=== PATIENT | male | born 1985 | race Caucasian/White ===

== ENCOUNTER 2016-09-16 17:07 | Emergency (ER) | payer OTHER ==
[~2016-09-16] VITALS: Ht 172.7 cm; Wt 68.0 kg
[2016-09-16] MEDS ORDERED: CYCL-331 PO (18:44)
[2016-09-16] MEDS ORDERED: NAPR500T3 PO (18:44)
[2016-09-16 19:00] VITALS: BP 145/62
--- NOTE | 2016-09-16 20:13 | ED.ADGEN ---
Past History Past Medical History: No Pertinent History Past Surgical History: No Surgical History Alcohol Use: Occasionally Drug Use: None Adult General HPI HPI Patient is a 31-year-old man, with no significant past medical history, who presents to the emergency department with a complaint of right shoulder pain. 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 He states he has no pain at rest, however when he attempts to adduct abduct or extend his arm he does have pain with motion. Denies similar symptoms previously, states he has history of a remote clavicle injury in the same side but no shoulder problems. No neck pain or back pain, no chest pain or difficulty breathing, no rashes, no other injuries. He did take naproxen approximately 2 hours prior to arrival in the ED, shortly after the injury occurred. Review of Systems Review of Systems Constitutional: Denies fever or chills [] Eyes: Denies change in visual acuity, redness, or eye pain [] HENT: Denies nasal congestion or sore throat [] Respiratory: Denies cough or shortness of breath [] Cardiovascular: No additional information not addressed in HPI [] GI: Denies abdominal pain, nausea, vomiting, bloody stools or diarrhea [] : Denies dysuria or hematuria [] Musculoskeletal: Denies back pain, pain in the right shoulder. Integument: Denies rash or skin lesions [] Neurologic: Denies headache, focal weakness or sensory changes [] Endocrine: Denies polyuria or polydipsia [] Allergies Allergies Allergies Coded Allergies Type Severity Reaction Last Updated Verified No Known Drug Allergies 09/16/16 No Physical Exam Physical Exam Constitutional: Well developed, well nourished, no acute distress, non-toxic appearance. [] HENT: Normocephalic, atraumatic, bilateral external ears normal, oropharynx moist, no oral exudates, nose normal. [] Eyes: PERRLA, EOMI, conjunctiva normal, no discharge. [] Neck: Normal range of motion, no tenderness, supple, no stridor. [] Cardiovascular:Heart rate regular rhythm, no murmur , S1, S2, rubs or gallops. [ ] Lungs & Thorax: Bilateral breath sounds clear to auscultation, no wheezing, rhonchi, rales. No chest or crepitus or tenderness. [] Abdomen: Bowel sounds normal, soft, no tenderness, no rebound, rigidity, no guarding, no masses, no pulsatile masses. [] Skin: Warm, dry, no erythema, no rash. [] Back: No tenderness, no CVA tenderness. [] Extremities: Patient had reproducible tenderness to palpation over the acromioclavicular joint, no squaring of the shoulder, no tenderness palpation of the shoulder or the glenoid fossa, no other areas of tenderness or discomfort , equal shoulder height on examination, scapular examination is normal as well no cyanosis, no clubbing, ROM intact, no edema. [] Neurologic: Alert and oriented X 3, normal motor function, normal sensory function, no focal deficits noted. [] Psychologic: Affect normal, judgement normal, mood normal. [] Current Patient Data Vital Signs Vital Signs Date Time Temp Pulse Resp B/P (MAP) Pulse Ox O2 Delivery O2 Flow Rate FiO2 09/16/16 19:00 98.5 84 20 145/62 (89) 99 EKG EKG [] Radiology/Procedures Radiology/Procedures Right shoulder x-ray: Three-view: No bony or soft tissue normalities identified , no fracture or dislocation. As interpreted by me. [] Course & Med Decision Making Course & Med Decision Making Pertinent Labs and Imaging studies reviewed. (See chart for details) [] Final Impression Final Impression Patient's examination reveals tenderness at the before meals joint. No significant widening or other maladies identified on x-ray. Inform the patient' s that he would be contacted by radiology if there over read require additional follow-up. Examination is consistent with an acromioclavicular strain joint strain, did offer the patient uses a sliding. He did attempt to follow-up with Worker's Compensation earlier today but the office was closed and his employer prompted him to come to the ED. Instructed patient to be on light duty until he is cleared for return to work by Worker's Compensation, was also given contact information for Dr. Ignacio of orthopedics to establish follow-up if directed to do so by Worker's Compensation physician. Patient was given prescription for naproxen and cyclobenzaprine to be used as directed with medication precautions and instructions given, patient to contact printer [employer]'s Compensation tomorrow morning, to return to the ED if any new or concerning symptoms develop. Patient discharged home in stable condition with significant other with plan as above. Problems: Dragon Disclaimer Dragon Disclaimer This electronic medical record was generated, in whole or in part, using a voice recognition dictation system. Departure: Impression: Primary Impression: Strain of AC joint Disposition: HOME, SELF-CARE Condition: IMPROVED Scripts Cyclobenzaprine Hcl (CYCLOBENZAPRINE HCL) 10 Mg Tablet 10 MG PO TID Y for PAIN, #12 TAB Prov: YOANA QUEVEDO DO 09/16/16 Naproxen (NAPROXEN) 500 Mg Tablet 500 MG PO BID Y for PAIN, #10 TAB Prov: YOANA QUEVEDO DO 09/16/16 YOANA QUEVEDO DO September 16, 2016 20:12
--- NOTE | 2016-09-17 08:38 | RAD ---
Indication: Right shoulder pain. Technique: 3 views of the right shoulder are submitted for review. No comparison is available. Findings: There is no fracture or dislocation. There is no osseous lesion. Impression: Negative for fracture.
== END 2016-09-16 19:00 | disposition home or self-care (01) ==
LOC: ER 17:07
DX: S46.811A Strain of other muscles, fascia and tendons at shoulder and upper arm level, right arm, initial encounter (principal); X50.9XXA Other and unspecified overexertion or strenuous movements or postures, initial encounter; Y93.89 Activity, other specified; Y99.8 Other external cause status; Y92.89 Other specified places as the place of occurrence of the external cause
CPT/HCPCS: 73030; 99284

== ENCOUNTER 2016-12-06 22:23 | Emergency (ER) | payer OTHER ==
[~2016-12-06] VITALS: Ht 172.7 cm; Wt 68.0 kg
[~2016-12-06 22:23] MED LIST: CYCL-331 PO; NAPR500T3 PO
[2016-12-06 23:05] VITALS: BP 160/93
--- NOTE | 2016-12-06 23:12 | ED.ADGEN ---
Past History Past Medical History: No Pertinent History Past Surgical History: No Surgical History Alcohol Use: Occasionally Drug Use: None Adult General Chief Complaint Chief Complaint sore throat since monday. HPI HPI Patient is a 31 y/o male that has had a sore throat since monday. he started solumedrol yesterday and has had 2 doses. he had a neg strep he states by his doctor. he is still having pain. no n/v/d. no fever. no sick contacts. Review of Systems Review of Systems Constitutional: Denies fever or chills [] Eyes: Denies change in visual acuity, redness, or eye pain [] HENT: Denies nasal congestion or sore throat [] Respiratory: Denies cough or shortness of breath [] Cardiovascular: No additional information not addressed in HPI [] GI: Denies abdominal pain, nausea, vomiting, bloody stools or diarrhea [] : Denies dysuria or hematuria [] Musculoskeletal: Denies back pain or joint pain [] Integument: Denies rash or skin lesions [] Neurologic: Denies headache, focal weakness or sensory changes [] Endocrine: Denies polyuria or polydipsia [] Current Medications Current Medications Current Medications Medications (Trade) Dose Ordered Sig/Naveen Start Time Stop Time Status Last Admin Dose Admin Acetaminophen/ Hydrocodone Bitart (Lortab 7.5/325) 1 tab 1X ONCE 12/06/16 23:45 12/06/16 23:45 DC 12/06/16 23:31 1 TAB Amoxicillin (Amoxil) 500 mg 1X ONCE 12/06/16 23:45 12/06/16 23:45 DC 12/06/16 23:31 500 MG Allergies Allergies Allergies Coded Allergies Type Severity Reaction Last Updated Verified No Known Drug Allergies 09/16/16 No Physical Exam Physical Exam Constitutional: Well developed, well nourished, no acute distress, non-toxic appearance. [] HENT: Normocephalic, atraumatic, bilateral external ears normal, oropharynx moist, no oral exudates, nose normal, no tonsillar swelling. no peritonsillar swelling, no exudates. minimal erythema Eyes: PERRLA, EOMI, conjunctiva normal, no discharge. [] Neck: Normal range of motion, no tenderness, supple, no stridor. + lymphadenopathy R>L Cardiovascular:Heart rate regular tachy rhythm, no murmur [] Lungs & Thorax: Bilateral breath sounds clear to auscultation [] Abdomen: Bowel sounds normal, soft, no tenderness, no masses, no pulsatile masses. [] Skin: Warm, dry, no erythema, no rash. [] Back: No tenderness, no CVA tenderness. [] Extremities: No tenderness, no cyanosis, no clubbing, ROM intact, no edema. [] Neurologic: Alert and oriented X 3, normal motor function, normal sensory function, no focal deficits noted. [] Psychologic: Affect normal, judgement normal, mood normal. [] Current Patient Data Vital Signs Vital Signs Date Time Temp Pulse Resp B/P (MAP) Pulse Ox O2 Delivery O2 Flow Rate FiO2 12/06/16 23:31 20 99 Room Air 12/06/16 23:05 100.0 95 EKG EKG [] Radiology/Procedures Radiology/Procedures [] Course & Med Decision Making Course & Med Decision Making Pertinent Labs and Imaging studies reviewed. (See chart for details) will add amoxil and lortab elixir. pt is a healthy adult with no immunocompromise, afebrile, to suggest risk for retropharyngeal abscess at this point. he will need to return if worse for further investigation [] Final Impression Final Impression pharyngitis lymphadenopathy[] Problems: Dragon Disclaimer Dragon Disclaimer This electronic medical record was generated, in whole or in part, using a voice recognition dictation system. Departure Time of Disposition: 23:13 Disposition: 01 HOME, SELF-CARE Condition: STABLE Patient Instructions: Viral and Bacterial Pharyngitis, [id number] Additional Instructions: start amoxil. continue solumedrol. start lortab elixir. keep liquids foods. return if increased pain, swelling, fever, or other concerns Prescriptions amoxil and lortab elixir BETY LANDRUM MD Dec 06, 2016 23:12
[2016-12-06] MEDS ORDERED: AMOX875T PO (23:16)
[2016-12-06] MEDS ORDERED: HYDR15SO4 PO (23:16)
[2016-12-06] MEDS ORDERED: AMOXICILLIN 500 MG CAPSULE PO ONE (23:45)
[2016-12-06] MEDS ORDERED: HYDROcodone/APAP 7.5/325MG 1 TAB TABLET PO ONE (23:45)
== END 2016-12-06 23:34 | disposition home or self-care (01) ==
LOC: ER 22:23
DX: J02.9 Acute pharyngitis, unspecified (principal); R59.1 Generalized enlarged lymph nodes
CPT/HCPCS: 99283

== ENCOUNTER 2017-05-06 07:39 | Emergency (ER) | payer OTHER ==
[~2017-05-06] VITALS: Ht 172.7 cm; Wt 68.0 kg
[~2017-05-06 07:39] MED LIST changes: +AMOX875T PO; +HYDR15SO4 PO; -NAPR500T3 PO; +NAPR500T4 PO
[2017-05-06 07:52] VITALS: BP 171/101
[2017-05-06] MEDS ORDERED: OXYMETAZOLINE 0.05% NASAL SPRAY 15ML BOTTLE. NS ONE (08:15)
--- NOTE | 2017-05-06 08:15 | PHYS DOC ---
Past History Past Medical History: No Pertinent History Past Surgical History: No Surgical History Smoking: Cigarettes Alcohol Use: Occasionally Drug Use: None Adult General Chief Complaint Chief Complaint: NOSEBLEED HPI HPI 32-year-old male patient without medical problem complaining of sudden onset of spontaneous left nasal bleeding without injury or recent upper respiratory infection about 20 minutes prior to arrival that did not get better with closing his nose or putting his head back. Patient denies other bleeding or ecchymoses, chest pain, shortness of breath, generalized weakness. Review of Systems Review of Systems Constitutional: Denies fever or chills [] Eyes: Denies change in visual acuity, redness, or eye pain [] HENT: Denies nasal congestion or sore throat, reports nose bleeding Respiratory: Denies cough or shortness of breath [] Cardiovascular: No additional information not addressed in HPI [] GI: Denies abdominal pain, nausea, vomiting, bloody stools or diarrhea [] : Denies dysuria or hematuria [] Musculoskeletal: Denies back pain or joint pain [] Integument: Denies rash or skin lesions [] Neurologic: Denies headache, focal weakness or sensory changes [] Endocrine: Denies polyuria or polydipsia [] All other systems were reviewed and found to be within normal limits, except as documented in this note. Current Medications Current Medications Current Medications Medications (Trade) Dose Ordered Sig/Naveen Start Time Stop Time Status Last Admin Dose Admin Oxymetazoline HCl (Afrin) 2 spray 1X ONCE 05/06/17 08:00 05/06/17 08:01 UNV Allergies Allergies Allergies Coded Allergies Type Severity Reaction Last Updated Verified No Known Drug Allergies 09/16/16 No Physical Exam Physical Exam Constitutional: Well developed, well nourished, mild distress, non-toxic appearance. [] HENT: Normocephalic, atraumatic, bilateral external ears normal, oropharynx moist, no oral exudates, left mild nasal bleeding that stopped with local pressure Eyes: PERRLA, EOMI, conjunctiva normal, no discharge. [] Neck: Normal range of motion, no tenderness, supple, no stridor. [] Cardiovascular:Heart rate regular rhythm, no murmur [] Lungs & Thorax: Bilateral breath sounds clear to auscultation [] Extremities: No tenderness, no cyanosis, no clubbing, ROM intact, no edema. [] Neurologic: Alert and oriented X 3, normal motor function, normal sensory function, no focal deficits noted. [] Current Patient Data Vital Signs Vital Signs Date Time Temp Pulse Resp B/P (MAP) Pulse Ox O2 Delivery O2 Flow Rate FiO2 05/06/17 07:52 98.0 88 16 99 Room Air EKG EKG [] Radiology/Procedures Radiology/Procedures [] Course & Med Decision Making Course & Med Decision Making Evaluation of patient in ER showed 32-year-old male patient with left nasal bleeding without injury or recent URI symptom. Patient had mild left nasal bleeding decreased with local pressure and Afrin nasal spray. Patient did not want to have nasal Packing. Patient didn't have any other sign of bleeding. Patient had blood pressure 150s and 140s while he was in ER without history of hypertension and instructed to record his blood pressure and follow with his primary care physician. Plan discharge patient home with diagnosis of epistaxis and instruction to use Afrin nasal spray. Dragon Disclaimer Dragon Disclaimer This electronic medical record was generated, in whole or in part, using a voice recognition dictation system. Departure Departure: Impression: Primary Impression: Epistaxis not due to trauma Additional Impressions: Tobacco abuse Tobacco abuse counseling Elevated blood pressure reading without diagnosis of hypertension Disposition: HOME, SELF-CARE (At 0901) Condition: IMPROVED Referrals: HARVEY ANNE MD (PCP) Patient Instructions: Nosebleed, Smoking Cessation, Tips For Success Additional Instructions: Use nasal spray 2 or 3 times a day as needed for bleeding Apply local pressure on nose for controlling bleeding Follow-up with your primary care physician in 3-5 days Return to ER if not getting better Problem Qualifiers TRENA AVERY MD May 06, 2017 08:15
== END 2017-05-06 09:19 | disposition home or self-care (01) ==
LOC: ER 07:39
DX: R04.0 Epistaxis (principal); R03.0 Elevated blood-pressure reading, without diagnosis of hypertension; F17.210 Nicotine dependence, cigarettes, uncomplicated; Z71.6 Tobacco abuse counseling
CPT/HCPCS: 99281; 99284

== ENCOUNTER 2017-05-07 18:10 | Emergency (ER) | payer OTHER ==
[~2017-05-07] VITALS: Ht 172.7 cm; Wt 68.0 kg
[2017-05-07 18:19] VITALS: BP 156/95
--- NOTE | 2017-05-07 19:40 | PHYS DOC ---
Past History Past Medical History: No Pertinent History Past Surgical History: No Surgical History Smoking: Cigarettes Alcohol Use: Occasionally Drug Use: None Adult General Chief Complaint Chief Complaint: NOSEBLEED HPI HPI Patient is a 32-year-old male who is a smoker who presents to complaints bleeding out of the left nostril, no trauma, patient has no other complaints. Review of Systems Review of Systems Constitutional: Denies fever or chills [] Eyes: Denies change in visual acuity, redness, or eye pain [] HENT: As per history of present illness Respiratory: Denies cough or shortness of breath [] Cardiovascular: No pain GI: Denies abdominal pain Musculoskeletal: Denies back pain or joint pain [] Integument: Denies rash or skin lesions [] Neurologic: Denies headache, focal weakness or sensory changes [] All other systems were reviewed and found to be within normal limits, except as documented in this note. Allergies Allergies Allergies Coded Allergies Type Severity Reaction Last Updated Verified No Known Drug Allergies 09/16/16 No Physical Exam Physical Exam Constitutional: Well developed, well nourished, no acute distress, non-toxic appearance. [] HENT: Normocephalic, atraumatic, bilateral external ears normal, oropharynx moist, no oral exudates, nose normal. No lesions identified in the left nostril , no septal hematoma Eyes: EOMI, conjunctiva normal, no discharge. [] Neck: Normal range of motion, trachea midline, no stridor. [] Cardiovascular: No perfusion Lungs & Thorax: No tachypnea Abdomen: No distention masses. [] Skin: Warm, dry, no erythema, no rash. [] Back: Range of motion Extremities: No tenderness ROM intact, no edema. [] Neurologic: Alert and oriented X 3, normal motor function,, no focal deficits noted. [] Psychologic: Affect normal, judgement normal, mood normal. [] Current Patient Data Vital Signs Vital Signs Date Time Temp Pulse Resp B/P (MAP) Pulse Ox O2 Delivery O2 Flow Rate FiO2 05/07/17 18:19 98.6 90 16 98 Room Air EKG EKG [] Radiology/Procedures Radiology/Procedures [] Course & Med Decision Making Course & Med Decision Making Pertinent Labs and Imaging studies reviewed. (See chart for details) Good stasis achieved with pressure however the patient was insistent on receiving packing due to recurrence of nosebleed and large amounts of bleeding at home. Nasal packing placed, patient told that he needs to be removed tomorrow , patient agrees and understands directions and agrees to follow-up as directed. Nasal packing, total time 1 minute [] Dragon Disclaimer Dragon Disclaimer This electronic medical record was generated, in whole or in part, using a voice recognition dictation system. Departure Departure: Impression: Primary Impression: Epistaxis Disposition: HOME, SELF-CARE Condition: IMPROVED Referrals: HARVEY ANNE MD (PCP) Please have packing removed in one day Patient Instructions: Nose Drops, Saline, [id number], Nosebleed Angeli CARPENTER MD May 07, 2017 19:40
== END 2017-05-07 20:32 | disposition home or self-care (01) ==
LOC: ER 18:10
DX: R04.0 Epistaxis (principal); F17.210 Nicotine dependence, cigarettes, uncomplicated
CPT/HCPCS: 30901; 99284-25

== ENCOUNTER 2019-11-03 11:45 | Emergency (ER) | payer BC, OTHER ==
[~2019-11-03] VITALS: Ht 172.7 cm; Wt 71.2 kg
[~2019-11-03 11:45] MED LIST changes: -HYDR15SO4 PO; +HYDR15SO6 PO; +NAPR-514 PO; -NAPR500T4 PO
[2019-11-03] MEDS ORDERED: IV NORMAL SALINE 1,000ML 1,000 ML IV SCH (12:03)
--- NOTE | 2019-11-03 12:05 | PHYS DOC ---
Past History Past Medical History: No Pertinent History Past Surgical History: No Surgical History Smoking: Cigarettes Alcohol Use: Occasionally Drug Use: None General Adult EDM: Chief Complaint: SYNCOPE HPI: HPI: Patient is a healthy 34-year-old male who presents to the emergency department for evaluation. He states that he was sitting on the couch watching TV when he began experiencing lightheadedness, and had a near syncopal episode. He did not actually lose consciousness. He was a little diaphoretic as well. He denies any pain, including any chest pain, abdominal pain, and has not had any nausea, vomiting, or diarrhea. He denies any headache. He denies any shortness of breath or pleuritic pain. He denies any sense of rotation, numbness, or weakness. He did drink some alcohol yesterday and on over 01 November. 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 Review of Systems: Review of Systems: Constitutional: Denies fever or chills Eyes: Denies change in visual acuity HENT: Denies nasal congestion or sore throat Respiratory: Denies cough or shortness of breath Cardiovascular: Denies chest pain or edema GI: Denies abdominal pain, nausea, vomiting, bloody stools or diarrhea : Denies dysuria Musculoskeletal: Denies back pain or joint pain Integument: Denies rash Neurologic: Denies headache, focal weakness or sensory changes Endocrine: Denies polyuria or polydipsia Lymphatic: Denies swollen glands Psychiatric: Denies depression or anxiety Heart Score: Risk Factors: Risk Factors: DM, Current or recent (<one month) smoker, HTN, HLP, family history of CAD, obesity. Risk Scores: Score 0 - 3: 2.5% MACE over next 6 weeks - Discharge Home Score 4 - 6: 20.3% MACE over next 6 weeks - Admit for Clinical Observation Score 7 - 10: 72.7% MACE over next 6 weeks - Early Invasive Strategies Allergies: Allergies: Allergies Coded Allergies Type Severity Reaction Last Updated Verified No Known Drug Allergies 11/03/19 No Physical Exam: PE: PHYSICAL EXAM: CONSTITUTIONAL: Well developed, well nourished HEAD: normocephalic, atraumatic EENT: PERRL, EOMI. Conjunctivae appear mildly injected, there is no nystagmus, sclerae non-icteric; moist mucous membranes. NECK: Supple, non-tender; no meningismus. LUNGS: Lungs CTA, breathing even and unlabored. Normal air movement. HEART: Regular rate and rhythm, no murmur CHEST: No deformity; non-tender ABDOMEN: The abdomen is soft, and non-tender, no masses or bruits. EXTREM: Normal ROM; no deformity, no calf tenderness. Normal pulses palpable in all extremities. There is no pedal edema. SKIN: No rash; no diaphoresis. There are first-degree lee noted on the tips of the fingers of the left hand. NEURO: Alert; normal speech and cognition; CN's grossly intact; strength grossly intact without focal deficit. BACK: No CVA TTP. Current Patient Data: Labs: Laboratory Tests Test 11/03/19 12:20 White Blood Count 6.5 x10^3/uL Red Blood Count 5.82 x10^6/uL Hemoglobin 19.6 g/dL Hematocrit 56.4 % Mean Corpuscular Volume 97 fL Mean Corpuscular Hemoglobin 34 pg Mean Corpuscular Hemoglobin Concent 35 g/dL Red Cell Distribution Width 13.6 % Platelet Count 213 x10^3/uL Neutrophils (%) (Auto) 66 % Lymphocytes (%) (Auto) 23 % Monocytes (%) (Auto) 9 % Eosinophils (%) (Auto) 2 % Basophils (%) (Auto) 1 % Neutrophils # (Auto) 4.3 x10^3uL Lymphocytes # (Auto) 1.5 x10^3/uL Monocytes # (Auto) 0.6 x10^3/uL Eosinophils # (Auto) 0.1 x10^3/uL Basophils # (Auto) 0.1 x10^3/uL Platelet Estimate Adequate Large Platelets Present Sodium Level 138 mmol/L Potassium Level 3.5 mmol/L Chloride Level 104 mmol/L Carbon Dioxide Level 23 mmol/L Anion Gap 11 Blood Urea Nitrogen 12 mg/dL Creatinine 1.3 mg/dL Estimated GFR (Cockcroft-Gault) 63.2 BUN/Creatinine Ratio 9 Glucose Level 109 mg/dL Calcium Level 9.3 mg/dL Magnesium Level 1.7 mg/dL Total Bilirubin 0.8 mg/dL Aspartate Amino Transf (AST/SGOT) 32 U/L Alanine Aminotransferase (ALT/SGPT) 55 U/L Alkaline Phosphatase 70 U/L Total Protein 7.7 g/dL Albumin 3.7 g/dL Albumin/Globulin Ratio 0.9 Current Medications Medications (Trade) Dose Ordered Sig/Naveen Route PRN Reason Start Time Stop Time Status Last Admin Dose Admin Sodium Chloride 1,000 ml @ 1,000 mls/hr Q1H IV 11/03/19 12:03 11/03/19 13:02 DC 11/03/19 12:18 Sodium Chloride 1,000 ml @ 1,000 mls/hr 1X ONCE IV 11/03/19 12:15 11/03/19 13:14 DC 11/03/19 12:59 EKG: EKG: Normal sinus rhythm with a normal rate, normal axis, normal intervals, there are no acute ischemic ST/T changes. [] Radiology/Procedures: Radiology/Procedures: [] Course & Med Decision Making: Course & Med Decision Making Pertinent Labs studies reviewed. (See chart for details) [] 1:45 PM: The patient's condition remained stable, he is feeling better. I discussed importance of adequate p.o. intake, the need for close PCP follow-up and return precautions in detail. Dragon Disclaimer: Dragon Disclaimer: This electronic medical record was generated, in whole or in part, using a voice recognition dictation system. Departure Departure: Impression: Primary Impression: Near syncope Disposition: HOME/RESIDENCE PRIOR TO ADM Condition: STABLE Referrals: HARVEY ANNE MD (PCP) Patient Instructions: Dehydration, Adult, Near-Syncope Justification of Admission: Justification of Admission: Justification of Admission Dx: N/A FEREM LUKE MD Nov 03, 2019 12:05
[2019-11-03] MEDS ORDERED: IV NORMAL SALINE 1,000ML 1,000 ML IV ONE (12:15)
[2019-11-03 12:35] LABS: BASO # 0.1 x10^3/uL (0.0-0.2); BASO % 1 % (0-3); EOS # 0.1 x10^3/uL (0.0-0.7); EOS % 2 % (0-3); HEMATOCRIT 56.4 % (39.0-53.0); HEMOGLOBIN 19.6 g/dL (13.0-17.5); LYMPH # 1.5 x10^3/uL (1.0-4.8); LYMPH % 23 % (24-48); MEAN CORPUSCULAR HEMOGLOBIN 34 pg (25-35); MEAN CORPUSCULAR HGB CONC 35 g/dL (31-37); MEAN CORPUSCULAR VOLUME 97 fL (79-100); MONO # 0.6 x10^3/uL (0.0-1.1); MONO % 9 % (0-9); NEUT # 4.3 x10^3uL (1.8-7.7); NEUT % 66 % (31-73); PLATELET COUNT 213 x10^3/uL (140-400); RED BLOOD COUNT 5.82 x10^6/uL (4.30-5.70); RED CELL DISTRIBUTION WIDTH 13.6 % (11.5-14.5); WHITE BLOOD COUNT 6.5 x10^3/uL (4.0-11.0)
[2019-11-03 12:42] LABS: CALCIUM 9.3 mg/dL (8.5-10.1); CREATININE 1.3 mg/dL (0.7-1.3); GFR 63.2; POTASSIUM 3.5 mmol/L (3.5-5.1)
[2019-11-03 12:48] LABS: ALBUMIN 3.7 g/dL (3.4-5.0); ALBUMIN/GLOBULIN RATIO 0.9 (1.0-1.7); MAGNESIUM 1.7 mg/dL (1.8-2.4); TOTAL BILIRUBIN 0.8 mg/dL (0.2-1.0); TOTAL PROTEIN 7.7 g/dL (6.4-8.2)
[2019-11-03 13:08] LABS: PLT ESTIMATE ADEQUATE (ADEQUATE)
[2019-11-03 13:45] VITALS: BP 146/53
--- NOTE | 2019-11-03 18:08 | EKG ---
[address] [address] Test Date: 2019-11-03 Test Time: 12:21:38 Pat Name: ARVIND AKINS Department: Room: Gender: M Sewer Head: : 1985 Requested By: EFREM LUKE Order Number: [id number] Reading MD: Measurements Intervals [place] Rate: 74 P: 48 NE: 140 QRS: 70 QRSD: 92 T: 28 QT: 354 QTc: 393 Interpretive Statements SINUS RHYTHM OTHERWISE NORMAL ECG RI6.02 No previous ECG available for comparison
== END 2019-11-03 14:00 | disposition home or self-care (01) ==
LOC: ER 11:45
DX: T23.122A Burn of first degree of single left finger (nail) except thumb, initial encounter (principal); R55 Syncope and collapse; X08.8XXA Exposure to other specified smoke, fire and flames, initial encounter; F17.210 Nicotine dependence, cigarettes, uncomplicated; Y93.89 Activity, other specified; Y92.89 Other specified places as the place of occurrence of the external cause; Y99.8 Other external cause status
CPT/HCPCS: 36415; 80053; 83735; 85025; 93005; 96360; 96361; 99285; J7030